=== PATIENT | male | born 1990 | race Caucasian/White ===

== ENCOUNTER 2017-12-23 09:42 | Emergency (ER) | payer BC ==
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
== END 2017-12-23 10:48 | disposition home or self-care (01) ==
LOC: FB.ED 09:42
DX: S00.83XA Contusion of other part of head, initial encounter (principal); S00.33XA Contusion of nose, initial encounter; V89.2XXA Person injured in unspecified motor-vehicle accident, traffic, initial encounter
CPT/HCPCS: 99282